=== PATIENT | female | born 1985 | race Caucasian/White ===

== ENCOUNTER 2021-07-27 21:59 | Emergency (ER) | payer OTHER, SELFPAY ==
[2021-07-27 22:46] VITALS: BP 111/80; PULSE 101; RESP 18; TEMP 36.3; O2SAT 100; BMI 19.7
--- NOTE | 2021-07-27 23:12 | ED_ITS ---
HPI - Female Genitourinary General Chief complaint: Vaginal Bleeding Stated complaint: Vaginal bleeding Time Seen by Provider: 07/27/21 23:12 Source: patient Mode of arrival: ambulatory Limitations: no limitations History of Present Illness HPI Narrative: Patient after medical termination of on 07/05 at 7 weeks [address] head ultrasound after 1 week which was clean no RPOC, vaginal bleed improved just prior to arrival patient started having heavy bleeding again with blood clots with lower abdominal cramps no dizziness no chest pain Related Data Allergies Allergy/AdvReac Type Severity Reaction Status Date / Time No Known Allergies Allergy Unverified 06/07/20 17:01 seasonal allergies Allergy Unknown Uncoded 03/30/18 00:00 Review of Systems Review of Systems: Yes all other systems are reviewed and are negative [facility], [facility] Social History Social History Advance Directives: No Advance Directives Information Provided: No Patient : No Physical Exam Vital Signs: Vital Signs: Last Vital Signs Temp 97.4 F 07/27/21 22:46 Pulse 102 H 07/28/21 00:24 Resp 16 07/28/21 00:24 BP 106/65 07/28/21 00:24 Pulse Ox 100 07/28/21 00:24 Body Mass Index 19.7 Appearance: Alert. Oriented X3. No acute distress. Eyes: PERRLA, No Nystagmus ENT: Pharynx normal. Oral Mucosa moist Neck: Normal inspection. Neck supple. CVS: Normal heart rate and rhythm. Pulses normal. Respiratory: No respiratory distress. Equal air entry bilateral, no wheezing/rales/rhonchi Abdomen: Soft and nontender. Bowel sounds are present, no mass palpable, no CVA tenderness : Blood clot present os is closed no active bleeding at this time after removal of the clock Skin: Skin warm and dry. Normal skin color. Normal skin turgor. Extremities: No lower extremity edema. No calf tenderness Neuro: Oriented X 3. No motor deficit. No sensory deficit.No cerebellar signs , cranial nerves II-XII intact Course Reevaluation(s) Reevaluation #1: Patient bleeding after 3 weeks of MTP patient past few clots after that bleeding is very minimal. 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 Patient already had ultrasound which showed empty uterus Time: 00:32 Discharge Plan Discharge Clinical Impression: bleeding Qualifiers: hemorrhage type: unspecified Qualified Code(s): O72.1 - Other immediate hemorrhage Patient Disposition: Home, Self-Care Instructions: Bleeding (ED) Additional Instructions: Follow-up with your OBG Report to the ER if worsening of bleeding Referrals: Dagoberto Sousa MD [Physician] - 1 week
[2021-07-28 00:23] VITALS: BP 108/67; BP 122/68; PULSE 85; PULSE 94
[2021-07-28 00:24] VITALS: BP 106/65; PULSE 102; RESP 16; O2SAT 100
== END 2021-07-28 01:01 | disposition home or self-care (01) ==
PROVIDERS: Emergency Provider Internal Medicine; PCP Internal Medicine
DX: O72.1 Other immediate postpartum hemorrhage (principal); N93.9 Abnormal uterine and vaginal bleeding, unspecified
CPT/HCPCS: 99283; 99284

== ENCOUNTER 2021-08-12 10:27 | Outpatient (REF) | payer OTHER, SELFPAY ==
[2021-08-12 11:58] LABS: Hematocrit 31.4 % (37.0-47.0); Hemoglobin 10.4 g/dl (12.0-16.0); Mean Corpuscular HGB Conc 33.1 g/dl (31.0-35.0); Mean Corpuscular Hemoglobin 29.6 pg (27.0-33.0); Mean Corpuscular Volume 89.5 fL (80.0-98.0); Mean Platelet Volume 10.6 fL (9.4-12.3); Platelet Count 270 X10*3/uL (160-400); Red Blood Count 3.51 X10*6/uL (4.20-5.50); Red Cell Distribution Width 12.2 % (11.0-16.0); White Blood Count 3.2 X10*3/uL (4.8-10.8)
[2021-08-12 12:39] LABS: HCG Quantitative 27 mIU/mL; TSH reflex Free T4 1.27 uIU/mL (0.32-4.0)
[2021-08-12 17:10] LABS: CT PCR NOT DETECTED (Not Detect.); NG PCR NOT DETECTED (Not Detect.)
[2021-08-16 21:01] LABS: HPV 16 RNA NOT DETECTED (NOT DETECTED); HPV mRNA E6/E7 rflx Detected (Not Detected)
== END 2021-08-12 10:28 | disposition home or self-care (01) ==
LOC: HO.LAB 10:27
PROVIDERS: PCP Internal Medicine; Visit Provider Obstetrics & Gynecology
DX: Z01.411 Encounter for gynecological examination (general) (routine) with abnormal findings (principal); Z11.51 Encounter for screening for human papillomavirus (HPV); N93.9 Abnormal uterine and vaginal bleeding, unspecified
CPT/HCPCS: 36415; 84443; 84702; 85027; 87491; 87591; 87624; 87625; 88142; 99202

== ENCOUNTER 2021-08-22 08:54 | Outpatient (REF) | payer OTHER, SELFPAY ==
--- NOTE | ~2021-08-22 | US_ITS ---
EXAMINATION: US PELVIC AND TRANSVAGINAL CLINICAL INFORMATION: Abnormal uterine and vaginal bleeding. COMPARISON: None TECHNIQUE: Ultrasound of the pelvis is performed using both transabdominal and transvaginal transducers along with Doppler. Transvaginal imaging is performed due to inadequate visualization transabdominally. FINDINGS: The uterus is anteverted and measures 8.2 x 5.4 x 6.1 cm in dimension. No focal uterine lesion is seen. The endometrium is slightly thickened and measures 1.6 cm. The endometrium is heterogeneous-appearing. There are 2 thick-walled cystic areas seen in the endometrium measuring 1.4 x 1.1 x 1.5 cm and 1.5 x 1.2 x 1.4 cm. These appear avascular. There are nabothian cysts in the cervix. The right ovary measures 4.5 x 2 x 2.7 cm. There is a 1.9 x 1.1 x 1.8 cm complex right ovarian cyst with slightly thickened echogenic wall and internal echoes. The left ovary is normal-appearing and measures 3.5 x 2 x 2.4 cm. There is a small amount of fluid in the pelvis. US/US pelvic and transvaginal IMPRESSION: Slightly thickened very heterogeneous-appearing endometrium. Question 2 complex cystic areas with thick echogenic wall in the endometrium. Small complex right ovarian cyst.
== END 2021-08-22 08:55 | disposition home or self-care (01) ==
LOC: HO.HMGCX 08:54
PROVIDERS: Visit Provider Obstetrics & Gynecology
DX: N93.9 Abnormal uterine and vaginal bleeding, unspecified (principal)
CPT/HCPCS: 76830; 76856

== ENCOUNTER 2021-09-05 10:27 | Outpatient (REF) | payer OTHER, SELFPAY | END 2021-09-05 10:28 | disposition home or self-care (01) | LOC: HO.LAB 10:27 | PROVIDERS: PCP Internal Medicine; Visit Provider Obstetrics & Gynecology | DX: N93.9 Abnormal uterine and vaginal bleeding, unspecified (principal); R87.610 Atypical squamous cells of undetermined significance on cytologic smear of cervix (ASC-US); R87.810 Cervical high risk human papillomavirus (HPV) DNA test positive | CPT/HCPCS: 58110; 57454; 58100; 88305 ==

== ENCOUNTER → 2021-09-26 09:56 | Outpatient (BNVA) | payer OTHER, SELFPAY | PROVIDERS: PCP Internal Medicine; Visit Provider Obstetrics & Gynecology ==

== ENCOUNTER 2022-09-30 13:48 | Outpatient (REF) | payer OTHER, SELFPAY ==
[2022-10-07 16:30] LABS: HPV mRNA E6/E7 rflx Not Detected (Not Detected)
== END 2022-09-30 13:49 | disposition home or self-care (01) ==
LOC: HO.LNP 13:48
PROVIDERS: PCP Internal Medicine; Visit Provider Obstetrics & Gynecology
DX: Z01.419 Encounter for gynecological examination (general) (routine) without abnormal findings (principal); Z11.51 Encounter for screening for human papillomavirus (HPV); N83.299 Other ovarian cyst, unspecified side
CPT/HCPCS: 87624; 88142

== ENCOUNTER 2022-10-28 11:00 | Outpatient (REF) | payer OTHER, SELFPAY ==
--- NOTE | ~2022-10-28 | US_ITS ---
EXAMINATION: US PELVIS CLINICAL INFORMATION: Ovarian cyst; the last period was in late September 2022. COMPARISON: None TECHNIQUE: Ultrasound of the pelvis is performed using both transabdominal and transvaginal transducers along with Doppler. Transvaginal imaging is performed due to inadequate visualization transabdominally. FINDINGS: Uterus: The uterus is anteverted and measures 9.0 x 4.3 x 6.6 cm. The uterus is anteverted and anteflexed. Nabothian cysts are seen within the cervix. The double wall endometrial thickness is 8 mm. The uterus is smooth in contour and has normal myometrial echogenicity. No visible fibroid. Adnexa: Both ovaries are visualized. There is normal color flow to the adnexa. There is no ovarian torsion. There is no pelvic ascites or fluid collection. Right ovary measures 2.4 x 1.1 x 1.7 cm, volume 2.4 mL. Left ovary measures 3.6 x 3.7 x 2.8 cm, volume 19.5 mL. Multiple left ovarian simple cysts and follicles are seen, the dominant cyst measuring 2.0 cm in maximal diameter. US/US pelvic and transvaginal IMPRESSION: 1. Left ovarian simple cysts and follicles are noted, the dominant cyst measuring 2.0 cm. These are benign findings, for which no imaging follow-up is recommended. 2. Nabothian cysts are seen within the cervix.
== END 2022-10-28 11:01 | disposition home or self-care (01) ==
LOC: HO.US 11:00
PROVIDERS: PCP Internal Medicine; Visit Provider Obstetrics & Gynecology
DX: N83.299 Other ovarian cyst, unspecified side (principal)
CPT/HCPCS: 76830; 76856

== ENCOUNTER → 2022-11-11 09:06 | Outpatient (BNVA) | payer OTHER, SELFPAY | PROVIDERS: PCP Internal Medicine; Visit Provider Obstetrics & Gynecology | DX: N83.299 Other ovarian cyst, unspecified side (principal) | CPT/HCPCS: 99212 ==